=== PATIENT | male | born 1950 | race Caucasian/White ===

== ENCOUNTER 2016-12-15 11:26 | Day surgery (SDC) | payer MEDICARE, OTHER ==
--- NOTE | ~2016-12-15 | OP ---
Record Of Operation [facility] [address] [place]. 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 POSTPROCEDURE DIAGNOSIS: Transsphincteric chronic yuyuoag-xb-yus. 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 PROCEDURE: Anal advancement flap with fibrin glue. DESCRIPTION OF PROCEDURE: The patient was taken to the operating room, induced under general anesthesia, placed into the prone erick-knife position, prepped and draped in the usual sterile fashion. The patient was prepped and draped in the usual sterile fashion. TAP block solution was used to inject for pudendal nerve block 10 mL bilaterally. The anus was dilated with a small, then medium lighted Hill-Pollack retractor. The external opening was easily visualized. The internal opening the scar tissue surrounding it was easily visualized. 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 The tract was curetted of all granulation tissue at the external opening of the cavity and the internal opening. It was irrigated with saline, free of all debris and blood clots. Then, the advancement flap was created by grasping rectal mucosa 1 cm above the internal opening with Allis clamps on either side, incising through the mucosa, submucosa, and into some very superficial internal sphincter muscle, elevating a 1 x 2 cm flap on either side. Then, the scar tissue and internal opening fistulectomy was performed to remove the internal opening of all epithelial tissue. This was passed off the table and sent to Pathology as internal opening. Then the fistula was closed by approximating internal sphincter muscle with [id number]-dw-[id number] 2-0 Vicryl suture. The wound bed was checked to make sure hemostasis was excellent and then the advancement flap first was approximated in the middle using 2-0 Vicryl suture to this repair and then 3-0 Vicryl RB-1 needle was used to close the flap from end to end in a running fashion. The fistula repair before closing the advancement flap over the top was tested with irrigation. It was watertight and then fibrin glue was used to fill the cavity leaving a long tail which was allowed to solidify. It was then trimmed, so it was flushed with the skin and the external opening was closed with a fbyjni-bz-xbvhi 3-0 Vicryl suture. The patient was cleaned and dried followed by two 4x4s, peripad, and mesh panties. He tolerated the procedure well. XU/HANDY Michael Salcedo M.D. / [id number] Record Of Operation [address] [address] NAME: INDIRA BUCKNER : 52 STATUS : [facility] PAT#: [id number] AGE: 66 ADM/REG DATE : 12/15/16 MR#: [id number] REPORT SERV DATE: 12/16/16 DICTATED BY: MICHAEL SALCEDO DATE: 12/15/16 REPORT STATUS : Draft TRANSCRIBED BY: HANDY DATE: 12/15/16 CC: Haider Garcia THOMAS Steven Efird, MD
[~2016-12-15 11:26] MED LIST: ADVIL PO; CO Q-1050 MG PO; FISH-EPA1000 MG PO; GARLIC PO; GLUCCHONDR PO; MULTIVIT/MIN PO; PROSTATE SUPPORT PO; SELENIUM PO; VITA D PO; VITC500 PO; ZINC PO; [UNRECOGNIZED DRUG - OTHER] PO
[2016-12-15 12:01] LABS: HEMATOCRIT 46.8 % (40.0-51.0); HEMOGLOBIN 16.2 g/dL (13.6-17.8)
== END 2016-12-15 16:54 | disposition home or self-care (01) ==
LOC: SDC 11:26
PROVIDERS: Surgery
PROC: 0DBQ0ZZ Excision of Anus, Open Approach (ICD-10-PCS; principal; 2016-12-15 12:45)
DX: K60.3 Anal fistula (principal); Z88.1 Allergy status to other antibiotic agents; Z90.89 Acquired absence of other organs; Z88.2 Allergy status to sulfonamides
CPT/HCPCS: 85014; 85018; 88304; 93005; J0690; J2250; J2405; J2710; J2795; J3010